=== PATIENT | female | born 1940 ===

== ENCOUNTER → 2023-12-22 11:00 | Outpatient (BNVA) | payer MEDICARE, OTHER, SELFPAY | PROVIDERS: PCP Family Medicine; Visit Provider Nurse Practitioner Family | DX: L57.0 Actinic keratosis (principal); L82.0 Inflamed seborrheic keratosis; L29.8 Other pruritus; L84 Corns and callosities; L82.1 Other seborrheic keratosis; D22.5 Melanocytic nevi of trunk | CPT/HCPCS: 17000; 17110; 99203 ==

== ENCOUNTER → 2024-01-24 12:45 | Outpatient (BNVA) | payer MEDICARE, OTHER, SELFPAY | PROVIDERS: PCP Family Medicine; Visit Provider Podiatrist Foot & Ankle Surgery | DX: L84 Corns and callosities (principal); M21.611 Bunion of right foot; M21.612 Bunion of left foot | CPT/HCPCS: 99203 ==